=== PATIENT | male | born 1995 | race Caucasian/White ===

== ENCOUNTER 2022-09-09 13:28 | Emergency (ER) | payer OTHER ==
--- NOTE | 2022-09-09 13:49 | ERPHSYRPT ---
- History of Present Illness Time Seen by Provider: 09/09/22 13:44 Source: patient, family Exam Limitations: no limitations Physician History: Pt thinks he got bitten by a spider last week on back of his neck and went to [facility] [place] a few days ago where they lanced it but it sealed back up and it is getting bigger. underlying spine not tender. mid eschar with indurated skin around and area that appears pointing but induration is thick - pt advised that it still may not drain and may require surgical drainage definitively. He an understand risks and benefits and wish to try drainage again. No other symptoms. PMHx is positive for prior MRSA No Neuro symptoms. Timing/Duration: day(s) Quality: painful Severity: moderate Location: neck Possible Causes: insect bite Associated Symptoms: denies symptoms Allergies/Adverse Reactions: No Known Drug Allergies Allergy (Verified 09/09/22 13:53) Home Medications: No Reportable Medications [No Reported Medications] 09/09/22 [History] Hx Tetanus, Diphtheria Vaccination/Date Given: No (last had update 2 years ago) - Review of Systems Constitutional: No Fever, No Chills Eyes: No Symptoms Ears, Nose, & Throat: No Symptoms Respiratory: No Cough, No Dyspnea Cardiac: No Chest Pain, No Edema, No Syncope Abdominal/Gastrointestinal: No Abdominal Pain, No Nausea, No Vomiting, No Diarrhea Genitourinary Symptoms: No Dysuria Musculoskeletal: No Back Pain, No Neck Pain Skin: No Rash Neurological: No Dizziness, No Focal Weakness, No Sensory Changes Psychological: No Symptoms Endocrine: No Symptoms Hematologic/Lymphatic: No Symptoms Immunological/Allergic: No Symptoms All Other Systems: Reviewed and Negative - Past Medical History Pertinent Past Medical History: Yes Neurological History: No Pertinent History ENT History: No Pertinent History Cardiac History: No Pertinent History Respiratory History: No Pertinent History Endocrine Medical History: No Pertinent History Musculoskeletal History: No Pertinent History GI Medical History: No Pertinent History History: No Pertinent History Psycho-Social History: No Pertinent History Male Reproductive Disorders: No Pertinent History Other Medical History: Prior MRSA - Past Surgical History Past Surgical History: No Neuro Surgical History: No Pertinent History Cardiac: No Pertinent History Respiratory: No Pertinent History Gastrointestinal: No Pertinent History Genitourinary: No Pertinent History Musculoskeletal: No Pertinent History Male Surgical History: No Pertinent History Significant Family History: no pertinent family hx - Nursing Vital Signs Nursing Vital Signs: Initial Vital Signs Temperature 97.1 F 05/27/23 13:37 Pulse Rate 98 H 09/09/22 13:37 Blood Pressure 138/80 09/09/22 13:37 O2 Sat by Pulse Oximetry 99 09/09/22 13:37 Pain Scale Pain Intensity 4 - Physical Exam General Appearance: no apparent distress, alert Eye Exam: PERRL/EOMI, eyes nml inspection Ears, Nose, Throat Exam: normal ENT inspection, pharynx normal, moist mucous membranes Neck Exam: normal inspection, non-tender, supple, full range of motion, mass (abscess/cellulitis posterior neck appears mobile separately from spine), No meningismus Respiratory Exam: normal breath sounds, lungs clear, airway intact, No respirato ry distress Cardiovascular Exam: regular rate/rhythm, normal heart sounds Gastrointestinal/Abdomen Exam: soft, mass, No tenderness Rectal Exam: deferred Back Exam: normal inspection, normal range of motion, No CVA tenderness, No vertebral tenderness Extremity Exam: normal inspection, normal range of motion Neurologic Exam: alert, oriented x 3, cooperative, normal mood/affect, sensation nml, No motor deficits Skin Exam: normal color, warm, dry, other (abscess/cellulitis left posterior neck) SpO2 Interpretation: normal SpO2: 98 O2 Delivery: Room Air Procedures - Incision and Drainage Time of Procedure: 14:59 Site: posterior neck Anesthesia: 1% Lidocaine cc's of anesthesia: 3 Blade Size: 11 I & D Procedure: betadine prep, sterile drapes applied, sterile dressing applied, culture obtained, gauze wick placed Results: large amount pus - Course Nursing assessment & vital signs reviewed: Yes - Progress Progress: improved, re-examined Progress Note: 09/09/22 15:01 discussed risks/benefits with pt and spouse fopr drainage adn antibiotic Tx infusion clinic due to likely recurren t MRSA and they agree to proceed. They understand also risks for need of more definitive surgical drainage. Counseled pt/family regarding: lab results, diagnosis, need for follow-up Medical Desision Making - Independent Historian Additional History obtained from: Spouse - Discussion of managment Reviewed:: Need for additional workup - Diagnostic Testing Diagnostic test were ordered, analyzed, and reviewed by me: Yes - Risk of complications The pt has a mod risk of morbidity or mortality based on: Need for prescription drug management - Departure Departure Disposition: Home Clinical Impression: MRSA cellulitis and abscess Condition: Good Critical Care Time: No Instructions: MRSA (DC), Abscess Incision and Drainage (DC) Additional Instructions: Return to the hospital outpatient infusion clinic for antibiotics tomorrow morning ( twice a day will be required for the next several days depending on follow-up with Dr. Solorio but we have written for up to 10 days) THe packing will need to by changed periodically either there or with Dr. Lora or ER if needed and dressing changed each time at the clinic. Return meantime if any fever, vomiting or not improving or other concerns.
[2022-09-09] MEDS ORDERED: VANCOMYCIN 1 GRAM/200 ML BAG 1 GM/200 ML PIGGYBACK IV ONE ×2 (15:08→15:16)
[2022-09-09] MEDS ORDERED: NORCO 5/325 MG PO ONE ×2 (15:21→15:23)
[2022-09-09] MEDS ORDERED: NORCO 5/325 MG ONE ×2 (15:25→17:01)
[2022-09-09 16:29] LABS: BLOOD UREA NITROGEN 17 mg/dL (9-20); Creatinine 1 0.94 mg/dL (0.66-1.25); EST GLOMERULAR FILTRATION RATE > 60.0 ML/MIN
[2022-09-09 17:10] VITALS: BP 119/69; PULSE 78; O2SAT 97
== END 2022-09-09 17:10 | disposition home or self-care (01) ==
LOC: ED 13:28
DX: L03.221 Cellulitis of neck (principal); B95.62 Methicillin resistant Staphylococcus aureus infection as the cause of diseases classified elsewhere; L02.11 Cutaneous abscess of neck
CPT/HCPCS: 10060; 36000; 36415; 82565; 84520; 87070; 87077; 87186; 96365; 99284; A9270-GY; J3370

== ENCOUNTER 2023-04-22 12:48 | Observation (INO) | payer BC, OTHER ==
[2023-04-22] MEDS ORDERED: Sodium Chloride 0.9% 1000 ML 1,000 ML IV STA (13:43)
--- NOTE | 2023-04-22 13:49 | ERPHSYRPT ---
- History of Present Illness Time Seen by Provider: 04/22/23 13:10 Historian: patient Exam Limitations: no limitations Patient Subjective Stated Complaint: pt here for abd cramping to lower abd, loose stools, fever Triage Nursing Assessment: pt alert, walked in, resp easy, skin w/d/p. abd soft, no edema, moves all ext well Physician History: 27yo m no pmhx presents for 2d n/v/d/epigastric pain. Pt reports the n/v started on 04/20 in the evening, pt does not recall what he ate that day but reports having multiple episodes of NBNB emesis as well as non-bloody diarrhea. Pt states yesterday his sx began to improve but he was still unable to tolerate PO intake, has not had anything PO today, has not vomited today. Pt currently denies cp, soa, BARAHONA, does endorse some epigastric abdominal pain, denies nausea. Timing/Duration: day(s) (2) Activities at Onset: none Quality: cramping Abdominal Pain Onset Location: epigastric Pain Radiation: no radiation Severity of Pain-Max: moderate Severity of Pain-Current: none Modifying Factors: Improves With: nothing Associated Symptoms: diarrhea, loss of appetite, nausea Previous symptoms: no prior history Body Map: 1 - epigastric pain Allergies/Adverse Reactions: No Known Drug Allergies Allergy (Verified 04/22/23 13:00) Home Medications: No Reportable Medications [No Reported Medications] 04/22/23 [History] Hx Tetanus, Diphtheria Vaccination/Date Given: No Hx Influenza Vaccination/Date Given: No Hx Pneumococcal Vaccination/Date Given: No Immunizations Up to Date: Yes Travel Risk - International Travel Have you traveled outside of the country in past 3 weeks: No - Coronavirus Screening Are you exhibiting any of the following symptoms?: Yes Symptoms: Fever, Vomiting/Diarrhea - Vaccine Status Have you recieved a Covid-19 vaccination: No - Review of Systems Constitutional: No Symptoms Respiratory: No Symptoms Cardiac: No Symptoms Abdominal/Gastrointestinal: Abdominal Pain, Nausea, Vomiting, Diarrhea Genitourinary Symptoms: No Symptoms - Past Medical History Pertinent Past Medical History: Yes Neurological History: Other ENT History: No Pertinent History Cardiac History: No Pertinent History Respiratory History: Asthma Endocrine Medical History: No Pertinent History Musculoskeletal History: No Pertinent History GI Medical History: No Pertinent History History: No Pertinent History Psycho-Social History: No Pertinent History Male Reproductive Disorders: No Pertinent History Other Medical History: PT. HAS ADHD AND ADD - Past Surgical History Past Surgical History: No Neuro Surgical History: No Pertinent History Cardiac: No Pertinent History Respiratory: No Pertinent History Gastrointestinal: No Pertinent History Genitourinary: No Pertinent History Musculoskeletal: No Pertinent History Male Surgical History: No Pertinent History - Social History Smoking Status: Current every day smoker How long have you smoked: age 15 Exposure to second hand smoke: Yes Drug Use: marijuana Patient Lives Alone: Yes Significant Family History: no pertinent family hx - Nursing Vital Signs Nursing Vital Signs: Initial Vital Signs Temperature 98.1 F 04/22/23 13:05 Pulse Rate 77 04/22/23 13:05 Respiratory Rate 16 04/22/23 13:05 Blood Pressure 118/76 04/22/23 13:05 O2 Sat by Pulse Oximetry 99 04/22/23 13:05 Pain Scale Pain Intensity 4 - Physical Exam General Appearance: no apparent distress Respiratory Exam: normal breath sounds, airway intact Cardiovascular Exam: regular rate/rhythm, normal heart sounds, normal peripheral pulses Gastrointestinal/Abdomen Exam: soft, normal bowel sounds, tenderness (mild TTP over epigastric region; no distention, no rebound tenderness, negative m cburney's, negative rovsing) SpO2 Interpretation: normal SpO2: 99 O2 Delivery: Room Air Ordered Tests: Active Orders 24 hr Category Date Time Status IV Insertion STAT Care 04/22/23 13:25 Active ABDOMEN AND PELVIS W CONTRAST [CT] Stat Exams 04/22/23 14:15 Completed CBC W DIFF Stat Lab 04/22/23 13:00 Completed CMP Stat Lab 04/22/23 13:00 Completed LIPASE Stat Lab 04/22/23 13:00 Completed Transfer Order Routine Transfer 04/22/23 Ordered Medication Summary Discontinued Medications Generic Name Dose Route Start Last Admin Trade Name Freq PRN Reason Stop Dose Admin Sodium Chloride 1,000 mls @ 999 mls/hr 04/22/23 13:43 04/22/23 14:56 Sodium Chloride 0.9% 1000 Ml IV 04/22/23 14:43 Infused .Q1H1M STA Infusion Sodium Chloride Confirm 04/22/23 13:53 Sodium Chloride 0.9% 1000 Ml Administered 04/22/23 13:54 Dose 1,000 mls @ ud .ROUTE .STK-MED ONE Potassium Chloride 20 meq 04/22/23 14:10 04/22/23 14:26 Potassium Chloride Tab 10 Meq Tab PO 04/22/23 14:11 20 meq STAT ONE Administration Potassium Chloride Confirm 04/22/23 14:23 Potassium Chloride Tab 10 Meq Tab Administered 04/22/23 14:24 Dose 20 meq PO .STK-MED ONE Lab/Rad Data: Laboratory Result Diagrams 04/22/23 13:00 04/22/23 13:00 Laboratory Results 04/22/23 04/22/23 Range/Units 13:00 13:00 WBC 6.7 (4.0-10.5) x10^3/uL RBC 4.96 (4.1-5.6) x10^6/uL Hgb 15.0 (12.5-18.0) g/dL Hct 44.7 (42-50) % MCV 90.1 (78-100) fL MCH 30.2 (26-32) pg MCHC 33.6 (32-36) g/dL RDW 12.8 (11.5-14.0) % Plt Count 289 (150-450) x10^3/uL MPV 9.8 (7.5-11.0) fL Gran % 67.3 H (36.0-66.0) % Immature Gran % (Auto) 0.3 (0.00-0.4) % Nucleat RBC Rel Count 0.0 (0.00-0.1) % Eos # (Auto) 0.28 (0-0.5) x10^3/uL Immature Gran # (Auto) 0.02 (0.00-0.03) x10^3u/L Absolute Lymphs (auto) 1.30 (1.0-4.6) x10^3/uL Absolute Monos (auto) 0.56 (0.0-1.3) x10^3/uL Absolute Nucleated RBC 0.00 (0.00-0.01) x10^3u/L Lymphocytes % 19.5 L (24.0-44.0) % Monocytes % 8.4 (0.0-12.0) % Eosinophils % 4.2 (0.00-5.0) % Basophils % 0.3 (0.0-0.4) % Absolute Granulocytes 4.50 (1.4-6.9) x10^3/uL Basophils # 0.02 (0-0.4) x10^3/uL Sodium 134 L (137-145) mmol/L Potassium 3.3 L (3.5-5.1) mmol/L Chloride 103 (98-107) mmol/L Carbon Dioxide 23 (22-30) mmol/L Anion Gap 11.5 (5-15) MEQ/L BUN 16 (9-20) mg/dL Creatinine 0.85 (0.66-1.25) mg/dL Estimated GFR 120.6 ML/MIN Glucose 92 (74-106) mg/dL Calcium 8.5 (8.4-10.2) mg/dL Total Bilirubin 0.40 (0.2-1.3) mg/dL AST 24 (17-59) U/L ALT 22 (0-50) U/L Alkaline Phosphatase 82 (38-126) U/L Serum Total Protein 6.9 (6.3-8.2) g/dL Albumin 4.0 (3.5-5.0) g/dL Lipase 34 (23-300) U/L - Progress Progress: unchanged Progress Note: 04/22/23 13:49 CT abd/pel w/ contrast ordered for eval of abdominal discomfort pt not requesting pain medication or anti-emetics at current time 04/22/23 14:11 labs showing mild hypoNa, hypoK - given IV NS bolus, 20meq K PO 04/22/23 16:32 CT abd/pelv: 1. The appendix appears slightly thick-walled with [id number] thickness measuring 1.0 cm and mild carolyn appendiceal fat stranding seen, findings are likely suggestive of acute appendicitis, clinical and laboratory correlation is advised. 2. A small amount of free fluid is seen in the pelvis. 3. Dilated small bowel loops with no evidence of bowel obstruction. I discussed pt presentation w/ gen surg Dr Albino Gonzales who recommended admission and plan for appendectomy tomorrow instructed to make pt NPO at midnight w/ clear liquids up to that time I informed pt about results and plan for admission, pt is agreeable 04/22/23 16:54 Discussed admission w/ Dr Kiran, accepts admission Will see patient in: hospital (observation) Counseled pt/family regarding: lab results, diagnosis, need for follow-up, rad results Medical Desision Making - Discussion of managment Care discussed with:: specialist (general surgery - Albino Gonzales) Reviewed:: Test results, Need for additional workup Agreed on:: place in obs (plan for appy tomorrow) Will see patient: in hospital - Diagnostic Testing Diagnostic test were ordered, analyzed, and reviewed by me: Yes Radiological Interpretation: Reviewed by me, Teleradiologist Report - Risk of complications The pt has a mod risk of morbidity or mortality based on: Need for minor surgical intervention in patient with know risk factors - Departure Departure Disposition: Observation Clinical Impression: Acute appendicitis Qualifiers: Acute appendicitis type: other Qualified Code(s): K35.890 - Other acute appendicitis without perforation or gangrene Condition: Stable Critical Care Time: No Referrals: DOCTOR,NO FAMILY [Primary Care Provider] - Follow up/PCP as directed
[2023-04-22] MEDS ORDERED: Sodium Chloride 0.9% 1000 ML 1,000 ML ONE (13:53)
[2023-04-22 13:54] LABS: ANION GAP 11.5 MEQ/L (5-15); BILIRUBIN,TOTAL 0.4 mg/dL (0.2-1.3); Calcium 8.5 mg/dL (8.4-10.2); Creatinine 1 0.85 mg/dL (0.66-1.25); EST GLOMERULAR FILTRATION RATE 120.6 ML/MIN; Potassium 3.3 mmol/L (3.5-5.1); Total Protein 6.9 g/dL (6.3-8.2)
[2023-04-22 14:04] LABS: BASOPHIL % 0.3 % (0.0-0.4); Basophil (Absolute #) 0.02 x10^3/uL (0-0.4); Eosinophil % 4.2 % (0.00-5.0); Eosinophil (Absolute #) 0.28 x10^3/uL (0-0.5); Hematocrit 44.7 % (42-50); IMMATURE GRAN # 0.02 x10^3u/L (0.00-0.03); IMMATURE GRAN % 0.3 % (0.00-0.4); Lymphocytes % 19.5 % (24.0-44.0); Mean Cell Volume 90.1 fL (78-100); Mean Corpuscular Hemoglobin 30.2 pg (26-32); Mean Corpuscular Hgb Concent. 33.6 g/dL (32-36); Mean Platelet Volume 9.8 fL (7.5-11.0); Monocyte (Absolute #) 0.56 x10^3/uL (0.0-1.3); Monocytes % 8.4 % (0.0-12.0); Neutrophil % 67.3 % (36.0-66.0); Platelet Count 289 x10^3/uL (150-450); Red Blood Count 4.96 x10^6/uL (4.1-5.6); Red Cell Distribution Width 12.8 % (11.5-14.0); White Blood Count 6.7 x10^3/uL (4.0-10.5)
[2023-04-22] MEDS ORDERED: Klor Con PO ONE ×2 (14:10→14:23)
--- NOTE | 2023-04-22 16:11 | XRAY ---
CLINICAL HISTORY:abdominal pain COMPARISON:None available. TECHNIQUE:CT of the abdomen and pelvis was performed with axial images as well as sagittal and coronal reconstruction images with intravenous contrast (80 CC ISOVUE [id number]). Images were reviewed in soft tissue and bone window settings. FINDINGS: The liver is normal in size, morphology, and position. The liver appears unremarkable with no extrahepatic bile duct dilation. The Portal vein appears normal in caliber. No evidence of portal thrombosis. The gallbladder appears partially distended with no obvious stones, wall thickening or pericholecystic inflammatory changes, or fluid. Unremarkable appearing pancreas. No pancreatic mass or ductal dilatation is seen. Unremarkable appearing spleen. Both adrenal glands appear normal. No abdominal wall pathology is seen. The kidneys appear normal in size. No cysts, calculi, masses or hydronephrosis. The ureters are normal with no stones. The urinary bladder is not well distended. Unremarkable abdominal aorta without specific evidence of aneurysm or dissection. IVC is normal. The stomach is partially collapsed and appears grossly unremarkable. A small amount of free fluid is seen in the pelvis. Dilated small bowel loops are seen with a maximum diameter in the pelvis measuring about 4 cm. The large bowel loops are of normal caliber and air-filled. The appendix appears slightly thick-walled with [id number]-[id number] thickness measuring 1.0 cm and adjacent fat stranding (SERIES # 2 IMAGE # [id number]). Findings are likely suggestive of acute appendicitis. No evidence of free air seen. Included lung bases and the visualized osseous structures appear unremarkable. IMPRESSION: 1. The appendix appears slightly thick-walled with [id number] thickness measuring 1.0 cm and mild carolyn appendiceal fat stranding seen, findings are likely suggestive of acute appendicitis, clinical and laboratory correlation is advised. 2. A small amount of free fluid is seen in the pelvis. 3. Dilated small bowel loops with no evidence of bowel obstruction. The [facility] ER was called at at 03:02 PM [employer] on 04/22/2023 and the results were communicated to Silvano Mora. Electronically Signed by: Rei Winn MD. (04/22/2023 16:07:57 EST)
--- NOTE | 2023-04-22 17:50 | PCM.HP ---
History of Present Illness - Chief Complaint Chief Complaint: Acute Appendicitis Date: 04/22/23 History of Present Illness: is a 27 year old male with PMHX of asthma, daily smoker, and smokes marijuana, ADD, and ADHD. Pt presented to the ER for 2days n/v/ d/epigastric pain. Pt reports the n/v started on 15 in the evening, pt does not recall what he ate that day but reports having multiple episodes of NBNB emesis as well as non-bloody diarrhea. Pt states yesterday his sx began to improve but he was still unable to tolerate PO intake, has not had anything PO today, has not vomited today. Pt currently denies CP, SOB, BARAHONA, does endorse some epigastric abdominal pain, denies nausea. WBC is normal, K+ 3.3 and replaced in ER. He received 1 L NS in the ER. - Review of Systems Constitutional: No Fever, No Chills Eyes: No Symptoms Ears, Nose, & Throat: No Symptoms Respiratory: No Cough, No Short Of Breath Cardiac: No Chest Pain, No Edema, No Syncope Abdominal/Gastrointestinal: Abdominal Pain, Nausea, Vomiting, Diarrhea Genitourinary Symptoms: No Dysuria Musculoskeletal: No Back Pain, No Neck Pain Skin: No Rash Neurological: No Dizziness, No Focal Weakness, No Sensory Changes Psychological: No Symptoms Endocrine: No Symptoms Hematologic/Lymphatic: No Symptoms Immunological/Allergic: No Symptoms Medications & Allergies Home Medications: Home Medication List No Reportable Medications [No Reported Medications] 04/22/23 [History Confirmed 04/22/23] Allergies/Adverse Reactions: Allergies Allergy/AdvReac Type Severity Reaction Status Date / Time No Known Drug Allergies Allergy Verified 04/22/23 13:00 - Past Medical History Past Medical History: Yes Neurological History: No Pertinent History ENT History: No Pertinent History Cardiac History: No Pertinent History Respiratory History: Asthma Endocrine Medical History: No Pertinent History Musculoskelatal History: No Pertinent History GI Medical History: No Pertinent History History: No Pertinent History Pyscho-Social History: Attention Deficit Disorder Male Reproductive Disorders: No Pertinent History Comment: PT. HAS ADHD AND ADD - Past Surgical History Past Surgical History: No Neuro Surgical History: No Pertinent History Cardiac History: No Pertinent History Respiratory Surgery: No Pertinent History GI Surgical History: No Pertinent History Genitourinary Surgical Hx: No Pertinent History Musculskeletal Surgical Hx: No Pertinent History Male Surgical History: No Pertinent History - Social History Smoking Status: Current every day smoker How long have you smoked: 10+ Exposure to second hand smoke: No Alcohol: Rarely Drug Use: none Significant Family History: no pertinent family hx - Physical Exam Vital Signs: Vital Signs - 24 hr Temp Pulse Resp BP BP Pulse Ox 04/22/23 17:23 97.9 F 71 16 116/75 99 04/22/23 17:13 97.9 F 71 16 116/75 99 04/22/23 16:54 99 04/22/23 16:00 70 16 101/64 04/22/23 15:30 110/76 99 04/22/23 15:01 114/59 99 04/22/23 14:30 118/79 93 L 04/22/23 14:00 115/75 98 04/22/23 13:05 98.1 F 77 16 118/76 99 General Appearance: no apparent distress, alert Neurologic Exam: alert, oriented x 3, cooperative, normal mood/affect, nml cerebellar function, nml station & gait, sensation nml, No motor deficits Eye Exam: PERRL/EOMI, eyes nml inspection Ears, Nose, Throat Exam: normal ENT inspection, TMs normal, pharynx normal, moist mucous membranes Neck Exam: normal inspection, non-tender, supple, full range of motion Respiratory Exam: normal breath sounds, lungs clear, No respiratory distress Cardiovascular Exam: regular rate/rhythm, normal heart sounds, normal peripheral pulses Gastrointestinal/Abdomen Exam: soft, normal bowel sounds, tenderness (RUQ and epigastric regions), No mass Back Exam: normal inspection, normal range of motion, No CVA tenderness, No vertebral tenderness Extremity Exam: normal inspection, normal range of motion, pelvis stable Skin Exam: normal color, warm, dry, No rash Lymphatic Exam: No adenopathy Results - Labs Lab/Micro Results: Lab Results-Last 24 Hours 04/22/23 04/22/23 Range/Units 13:00 13:00 WBC 6.7 (4.0-10.5) x10^3/uL RBC 4.96 (4.1-5.6) x10^6/uL Hgb 15.0 (12.5-18.0) g/dL Hct 44.7 (42-50) % MCV 90.1 (78-100) fL MCH 30.2 (26-32) pg MCHC 33.6 (32-36) g/dL RDW 12.8 (11.5-14.0) % Plt Count 289 (150-450) x10^3/uL MPV 9.8 (7.5-11.0) fL Gran % 67.3 H (36.0-66.0) % Immature Gran % (Auto) 0.3 (0.00-0.4) % Nucleat RBC Rel Count 0.0 (0.00-0.1) % Eos # (Auto) 0.28 (0-0.5) x10^3/uL Immature Gran # (Auto) 0.02 (0.00-0.03) x10^3u/L Absolute Lymphs (auto) 1.30 (1.0-4.6) x10^3/uL Absolute Monos (auto) 0.56 (0.0-1.3) x10^3/uL Absolute Nucleated RBC 0.00 (0.00-0.01) x10^3u/L Lymphocytes % 19.5 L (24.0-44.0) % Monocytes % 8.4 (0.0-12.0) % Eosinophils % 4.2 (0.00-5.0) % Basophils % 0.3 (0.0-0.4) % Absolute Granulocytes 4.50 (1.4-6.9) x10^3/uL Basophils # 0.02 (0-0.4) x10^3/uL Sodium 134 L (137-145) mmol/L Potassium 3.3 L (3.5-5.1) mmol/L Chloride 103 (98-107) mmol/L Carbon Dioxide 23 (22-30) mmol/L Anion Gap 11.5 (5-15) MEQ/L BUN 16 (9-20) mg/dL Creatinine 0.85 (0.66-1.25) mg/dL Estimated GFR 120.6 ML/MIN Glucose 92 (74-106) mg/dL Calcium 8.5 (8.4-10.2) mg/dL Total Bilirubin 0.40 (0.2-1.3) mg/dL AST 24 (17-59) U/L ALT 22 (0-50) U/L Alkaline Phosphatase 82 (38-126) U/L Serum Total Protein 6.9 (6.3-8.2) g/dL Albumin 4.0 (3.5-5.0) g/dL Lipase 34 (23-300) U/L - Radiology Impressions Radiology Exams & Impressions: Radiology Procedures Category Date Time Status ABDOMEN AND PELVIS W CONTRAST [CT] Stat Exams 04/22/23 14:15 Completed Assessment/Plan (1) Acute appendicitis Current Visit: Yes Status: Acute Qualifiers: Acute appendicitis type: other Qualified Code(s): K35.890 - Other acute appendicitis without perforation or gangrene; K35.89 - Other acute appendicitis Assessment & Plan: -NPO after midnight - WBC WNL - LR @ 100 ml/hr - Zofran for nausea PRN - Morphine for pain PRN - Tylenol for fever PRN Code(s): K35.80 - UNSPECIFIED ACUTE APPENDICITIS (2) Hypokalemia Current Visit: Yes Status: Acute Assessment & Plan: - K+ 3.3 replaced Code(s): E87.6 - HYPOKALEMIA (3) Hyponatremia Current Visit: Yes Status: Acute Assessment & Plan: - Mild Na+ 134 - 2:2 N/V- hypovolemia - IVF - Zofran PRN Code(s): E87.1 - HYPO-OSMOLALITY AND HYPONATREMIA (4) Smoker Current Visit: Yes Status: Acute Assessment & Plan: - advised cessation - nicotine patch VTE: SCD D/C plan tomorrow. Code(s): F17.200 - NICOTINE DEPENDENCE, UNSPECIFIED, UNCOMPLICATED
[2023-04-22] MEDS ORDERED: Zofran 4 MG/2 ML VIAL IV PRN (17:52)
[2023-04-22] MEDS ORDERED: TYLENOL 325 MG PO PRN (17:58)
[2023-04-22] MEDS: Lactated Ringers 1,000 ML IV SCH (18:09)
[2023-04-22] MEDS: Nicoderm CQ 21 MG TOP SCH (18:13)
[2023-04-22] MEDS: MORPHINE SULFATE 2 MG INJ IV PRN (18:18)
[2023-04-22] MEDS ORDERED: PIPERACILLIN/TAZOBACTAM IV ONE (23:30)
[2023-04-22] MEDS ORDERED: Sodium Chloride 100ML MINI-BAG PLUS 100 ML IV ONE (23:30)
[2023-04-23] MEDS: PIPERACILLIN/TAZOBACTAM 3.375 GM in Sodium Chloride 100ML MINI-BAG PLUS 100 ML IV SCH ×5 (00:03→22:21)
[2023-04-23] MEDS: MORPHINE SULFATE 2 MG INJ IV PRN (02:27)
[2023-04-23 04:54] LABS: Hematocrit 39.1 % (42-50); Mean Cell Volume 90.5 fL (78-100); Mean Corpuscular Hemoglobin 30.1 pg (26-32); Mean Corpuscular Hgb Concent. 33.2 g/dL (32-36); Mean Platelet Volume 9.6 fL (7.5-11.0); Platelet Count 256 x10^3/uL (150-450); Red Blood Count 4.32 x10^6/uL (4.1-5.6); Red Cell Distribution Width 13.2 % (11.5-14.0); White Blood Count 9.4 x10^3/uL (4.0-10.5)
--- NOTE | 2023-04-23 05:12 | PCM.NOTE ---
Date and Time: 04/23/23 0509 Subjective Assessment: Mr. Oshea is a 27 year old male with no pmhx who presented to ED 04/22/23 with complaints of N/V/D that started on 04/20/23. CT of the abdomen/pelvis suggestive of acute appendicitis with a small amount of free fluid within the abdomen. Lab findings on presentation remarkable for hypokalemia at 3.3. Patient admitted for acute appendicitis, started on Zosyn. Surgery consulted with plans for surgical intervention 04/23/23. 04/23/23: Met with patient bedside. Endorses improvement in abdominal pain. No further N/V. Overnight events noted of asymptomatic hypotension. Patient given fluid bolus, vitals now stable. Plan for surgical intervention this evening. <DIANA CORONA - Last Filed: 04/23/23 14:14> Date and Time: 04/23/23 2131 <MARK MCDANIEL - Last Filed: 04/23/23 21:32> - Review of Systems Constitutional: No Symptoms Eyes: No Symptoms Ears, Nose, & Throat: No Symptoms Respiratory: No Symptoms Cardiac: No Symptoms Abdominal/Gastrointestinal: No Symptoms Genitourinary Symptoms: No Symptoms Musculoskeletal: No Symptoms Skin: No Symptoms Neurological: No Symptoms Psychological: No Symptoms Endocrine: No Symptoms Hematologic/Lymphatic: No Symptoms Immunological/Allergic: No Symptoms <DIANA CORONA - Last Filed: 04/23/23 14:14> Objective Exam General Appearance: no apparent distress Neurologic Exam: alert, oriented x 3, cooperative Skin Exam: normal color Eye Exam: PERRL Ears, Nose, Throat Exam: normal ENT inspection Neck Exam: normal inspection Respiratory Exam: normal breath sounds, lungs clear Cardiovascular Exam: regular rate/rhythm, normal heart sounds Gastrointestinal/Abdomen Exam: soft, normal bowel sounds, tenderness Extremity Exam: normal inspection Back Exam: normal inspection Male Genitalia Exam: deferred Rectal Exam: deferred <DIANA CORONA - Last Filed: 04/23/23 14:14> OBJECTIVE DATA Vital Signs: Vital Signs - 24 hr Temp Pulse Resp BP BP Pulse Ox 04/23/23 03:47 97.8 F 75 16 84/51 97 04/22/23 23:55 98.5 F 77 17 121/69 99 04/22/23 20:00 98.3 F 65 17 114/68 98 04/22/23 17:23 97.9 F 71 16 116/75 99 04/22/23 17:13 97.9 F 71 16 116/75 99 04/22/23 16:54 99 04/22/23 16:00 70 16 101/64 04/22/23 15:30 110/76 99 04/22/23 15:01 114/59 99 04/22/23 14:30 118/79 93 L 04/22/23 14:00 115/75 98 04/22/23 13:05 98.1 F 77 16 118/76 99 Pain Assessment - Last Documented Pain Intensity 2 Pain Scale Used 0-10 Pain Scale Intake and Output: Intake & Output 04/20/23 04/21/23 04/22/23 04/23/23 11:59 11:59 11:59 11:59 Intake Total 1551 Balance 1551 Weight 81.5 kg Lab Results: Lab Results-Last 24 Hours 04/22/23 04/22/23 04/23/23 Range/Units 13:00 13:00 04:37 WBC 6.7 9.4 (4.0-10.5) x10^3/uL RBC 4.96 4.32 (4.1-5.6) x10^6/uL Hgb 15.0 13.0 (12.5-18.0) g/dL Hct 44.7 39.1 L (42-50) % MCV 90.1 90.5 (78-100) fL MCH 30.2 30.1 (26-32) pg MCHC 33.6 33.2 (32-36) g/dL RDW 12.8 13.2 (11.5-14.0) % Plt Count 289 256 (150-450) x10^3/uL MPV 9.8 9.6 (7.5-11.0) fL Gran % 67.3 H (36.0-66.0) % Immature Gran % (Auto) 0.3 (0.00-0.4) % Nucleat RBC Rel Count 0.0 (0.00-0.1) % Eos # (Auto) 0.28 (0-0.5) x10^3/uL Immature Gran # (Auto) 0.02 (0.00-0.03) x10^3u/L Absolute Lymphs (auto) 1.30 (1.0-4.6) x10^3/uL Absolute Monos (auto) 0.56 (0.0-1.3) x10^3/uL Absolute Nucleated RBC 0.00 (0.00-0.01) x10^3u/L Lymphocytes % 19.5 L (24.0-44.0) % Monocytes % 8.4 (0.0-12.0) % Eosinophils % 4.2 (0.00-5.0) % Basophils % 0.3 (0.0-0.4) % Absolute Granulocytes 4.50 (1.4-6.9) x10^3/uL Basophils # 0.02 (0-0.4) x10^3/uL Sodium 134 L (137-145) mmol/L Potassium 3.3 L (3.5-5.1) mmol/L Chloride 103 (98-107) mmol/L Carbon Dioxide 23 (22-30) mmol/L Anion Gap 11.5 (5-15) MEQ/L BUN 16 (9-20) mg/dL Creatinine 0.85 (0.66-1.25) mg/dL Estimated GFR 120.6 ML/MIN Glucose 92 (74-106) mg/dL Calcium 8.5 (8.4-10.2) mg/dL Total Bilirubin 0.40 (0.2-1.3) mg/dL AST 24 (17-59) U/L ALT 22 (0-50) U/L Alkaline Phosphatase 82 (38-126) U/L Serum Total Protein 6.9 (6.3-8.2) g/dL Albumin 4.0 (3.5-5.0) g/dL Lipase 34 (23-300) U/L Radiology Exams: Radiology Procedures Category Date Time Status ABDOMEN AND PELVIS W CONTRAST [CT] Stat Exams 04/22/23 14:15 Completed <DIANA CORONA - Last Filed: 04/23/23 14:14> Vital Signs: Vital Signs - 24 hr Temp Pulse Resp BP Pulse Ox 04/23/23 17:06 97.0 F 65 17 107/58 99 04/23/23 16:00 97.0 F 65 17 107/58 99 04/23/23 12:00 97.3 F 69 17 111/59 97 04/23/23 08:29 100/64 04/23/23 08:00 97.3 F 69 17 111/59 97 04/23/23 07:53 97.0 F 55 L 16 78/48 99 04/23/23 07:28 97.0 F 55 L 16 78/48 99 04/23/23 03:47 97.8 F 75 16 84/51 97 04/22/23 23:55 98.5 F 77 17 121/69 99 Pain Assessment - Last Documented Pain Intensity 0 Pain Scale Used 0-10 Pain Scale Intake and Output: Intake & Output 04/21/23 04/22/23 04/23/23 04/24/23 11:59 11:59 11:59 11:59 Intake Total 2682 60 Balance 2682 60 Weight 81.5 kg 81.5 kg Lab Results: Lab Results-Last 24 Hours 04/23/23 04/23/23 Range/Units 04:37 04:37 WBC 9.4 (4.0-10.5) x10^3/uL RBC 4.32 (4.1-5.6) x10^6/uL Hgb 13.0 (12.5-18.0) g/dL Hct 39.1 L (42-50) % MCV 90.5 (78-100) fL MCH 30.1 (26-32) pg MCHC 33.2 (32-36) g/dL RDW 13.2 (11.5-14.0) % Plt Count 256 (150-450) x10^3/uL MPV 9.6 (7.5-11.0) fL Sodium 133 L (137-145) mmol/L Potassium 3.7 (3.5-5.1) mmol/L Chloride 106 (98-107) mmol/L Carbon Dioxide 20 L (22-30) mmol/L Anion Gap 10.1 (5-15) MEQ/L BUN 12 (9-20) mg/dL Creatinine 0.67 (0.66-1.25) mg/dL Estimated GFR 129.6 ML/MIN Glucose 110 H (74-106) mg/dL Calcium 8.1 L (8.4-10.2) mg/dL Total Bilirubin 0.30 (0.2-1.3) mg/dL AST 18 (17-59) U/L ALT 18 (0-50) U/L Alkaline Phosphatase 67 (38-126) U/L Serum Total Protein 5.9 L (6.3-8.2) g/dL Albumin 3.2 L (3.5-5.0) g/dL Radiology Exams: Radiology Procedures Category Date Time Status ABDOMEN AND PELVIS W CONTRAST [CT] Stat Exams 04/22/23 14:15 Completed <MARK MCDANIEL - Last Filed: 04/23/23 21:32> Assessment/Plan (1) Acute appendicitis Current Visit: Yes Status: Acute Qualifiers: Acute appendicitis type: other Qualified Code(s): K35.890 - Other acute appendicitis without perforation or gangrene; K35.89 - Other acute appendicitis Assessment & Plan: -NPO after midnight - WBC WNL - LR @ 100 ml/hr - Zofran for nausea PRN - Morphine for pain PRN - Tylenol for fever PRN 04/23/23: -Zosyn -Plan for surgical intervention today per surgery Code(s): K35.80 - UNSPECIFIED ACUTE APPENDICITIS (2) Hypokalemia Current Visit: Yes Status: Acute Assessment & Plan: - K+ 3.3 replaced 04/23/23: -Resolved, continue to monitor renal/lytes Code(s): E87.6 - HYPOKALEMIA (3) Hyponatremia Current Visit: Yes Status: Acute Assessment & Plan: - Mild Na+ 134 - 2:2 N/V- hypovolemia - IVF - Zofran PRN Code(s): E87.1 - HYPO-OSMOLALITY AND HYPONATREMIA (4) Smoker Current Visit: Yes Status: Acute Assessment & Plan: - advised cessation - nicotine patch VTE: SCD D/C plan tomorrow. Code(s): K35.80 - UNSPECIFIED ACUTE APPENDICITIS (2) Hypokalemia Current Visit: Yes Status: Acute Code(s): E87.6 - HYPOKALEMIA (3) Hyponatremia Current Visit: Yes Status: Acute Code(s): E87.1 - HYPO-OSMOLALITY AND HYPONATREMIA (4) Smoker Current Visit: Yes Status: Acute Code(s): F17.200 - NICOTINE DEPENDENCE, UNSPECIFIED, UNCOMPLICATED <DIANA CORONA - Last Filed: 04/23/23 14:14> JOHNNY Encounter - JOHNNY Encounter Attestation JOHNNY Encounter Attestation: "KATIANA Hare andjavieriscussed pertinent aspects of their care with Diana Corona and agree with the history, physical exam (any modifications based on my personal exam will be noted below), assessment, and plan as outlined in original note. Please see immediately below for my summary of findings and additional assessment and plan along with any meaningful corrections/explanations to the Subjective/Objective portions of the JOHNNY note will be noted." My portion of the encounter took place via telemedicine. -Patient seen prior to surgery. Denied any pain. Plan for appendectomy today. <MARK MCDANIEL - Last Filed: 04/23/23 21:32>
[2023-04-23] MEDS: Lactated Ringers 1,000 ML IV SCH ×3 (05:20→22:33)
[2023-04-23 05:27] LABS: ALBUMIN 3.2 g/dL (3.5-5.0); ANION GAP 10.1 MEQ/L (5-15); BILIRUBIN,TOTAL 0.3 mg/dL (0.2-1.3); Calcium 8.1 mg/dL (8.4-10.2); Creatinine 1 0.67 mg/dL (0.66-1.25); EST GLOMERULAR FILTRATION RATE 129.6 ML/MIN; Potassium 3.7 mmol/L (3.5-5.1); Total Protein 5.9 g/dL (6.3-8.2)
[2023-04-23] MEDS ORDERED: PIPERACILLIN/TAZOBACTAM IV ONE (05:27)
[2023-04-23] MEDS ORDERED: Sodium Chloride 100ML MINI-BAG PLUS 100 ML IV ONE (05:28)
[2023-04-23] MEDS ORDERED: Sensorcaine 0.25% 10 ML ONE (14:04)
[2023-04-23] MEDS ORDERED: SUBLIMAZE 100 MCG/2 ML ONE ×2 (18:00→19:27)
[2023-04-23] MEDS ORDERED: Versed 2 MG/2 ML Injection ONE (18:00)
[2023-04-23] MEDS ORDERED: Zemuron 100 MG/10 ML ONE (18:00)
[2023-04-23] MEDS ORDERED: DIPRIVAN 200 MG/20 ML IV ONE (18:00)
[2023-04-23] MEDS ORDERED: Quelicin Fliptop 200 MG/10 ML ONE (18:00)
[2023-04-23] MEDS ORDERED: Lactated Ringers 1,000 ML IV ONE (18:30)
[2023-04-23] MEDS ORDERED: BRIDION 200MG/2ML IV ONE (19:26)
[2023-04-23] MEDS: Nicoderm CQ 21 MG TOP SCH (22:28)
[2023-04-23] MEDS: NORCO 5/325 MG PO PRN (22:29)
[2023-04-24 02:00] VITALS: RESP 16
[2023-04-24 04:49] LABS: Absolute Neutrophil Ct (ANC) 7.38 x10^3/uL (1.4-6.9); BASOPHIL % 0.3 % (0.0-0.4); Basophil (Absolute #) 0.03 x10^3/uL (0-0.4); Eosinophil % 2.1 % (0.00-5.0); Eosinophil (Absolute #) 0.21 x10^3/uL (0-0.5); Hematocrit 38.4 % (42-50); IMMATURE GRAN # 0.04 x10^3u/L (0.00-0.03); IMMATURE GRAN % 0.4 % (0.00-0.4); Lymphocyte (Absolute #) 1.75 x10^3/uL (1.0-4.6); Lymphocytes % 17.4 % (24.0-44.0); Mean Cell Volume 89.7 fL (78-100); Mean Corpuscular Hemoglobin 30.4 pg (26-32); Mean Corpuscular Hgb Concent. 33.9 g/dL (32-36); Mean Platelet Volume 9.9 fL (7.5-11.0); Monocyte (Absolute #) 0.64 x10^3/uL (0.0-1.3); Monocytes % 6.4 % (0.0-12.0); Neutrophil % 73.4 % (36.0-66.0); Platelet Count 281 x10^3/uL (150-450); Red Blood Count 4.28 x10^6/uL (4.1-5.6); Red Cell Distribution Width 13.2 % (11.5-14.0); White Blood Count 10.1 x10^3/uL (4.0-10.5)
--- NOTE | 2023-04-24 05:08 | PCM.DS ---
Discharge Summary Date of Admission: 04/22/23 17:12 Date of Discharge: 04/24/23 Admitting Physician: FRANCOIS HESTER MD Primary Care Provider: NO FAMILY DOCTOR <DIANA CORONA - Last Filed: 04/24/23 11:39> Date of Admission: 04/22/23 17:12 Admitting Physician: FRANCOIS HESTER MD Primary Care Provider: NO FAMILY DOCTOR <MARK MCDANIEL - Last Filed: 04/24/23 21:53> Allergies <DIANA CORONA - Last Filed: 04/24/23 11:39> <MARK MCDANIEL - Last Filed: 04/24/23 21:53> Allergies No Known Drug Allergies Allergy (Verified 04/22/23 13:00) Hospital Summary - Hospital Course Hospital Course: Mr. Oshea is a 27 year old male with no pmhx who presented to ED 04/22/23 with complaints of N/V/D that started on 04/20/23. CT of the abdomen/pelvis suggestive of acute appendicitis with a small amount of free fluid within the abdomen. Lab findings on presentation remarkable for hypokalemia at 3.3. Patient admitted for acute appendicitis, started on Zosyn. Surgery consulted with plans for surgical intervention 04/23/23. Patient had lap appendectomy with no complications. He reports no pain today. Surgery has cleared him for discharge with follow up. Will supply [place] for pain. Discharge Note New Diagnosis: Appendicitis New Medications: [place] Follow Up: PCP/Surgery Latest Assessment & Plan (1) Acute appendicitis Current Visit: Yes Status: Acute Qualifiers: Acute appendicitis type: other Qualified Code(s): K35.890 - Other acute appendicitis without perforation or gangrene; K35.89 - Other acute appendicitis Assessment & Plan: -NPO after midnight - WBC WNL - LR @ 100 ml/hr - Zofran for nausea PRN - Morphine for pain PRN - Tylenol for fever PRN 04/23/23: -Zosyn -Plan for surgical intervention today per surgery Code(s): K35.80 - UNSPECIFIED ACUTE APPENDICITIS (2) Hypokalemia Current Visit: Yes Status: Acute Assessment & Plan: - K+ 3.3 replaced 04/23/23: -Resolved, continue to monitor renal/lytes Code(s): E87.6 - HYPOKALEMIA (3) Hyponatremia Current Visit: Yes Status: Acute Assessment & Plan: - Mild Na+ 134 - 2:2 N/V- hypovolemia - IVF - Zofran PRN Code(s): E87.1 - HYPO-OSMOLALITY AND HYPONATREMIA (4) Smoker Current Visit: Yes Status: Acute Assessment & Plan: - advised cessation - nicotine patch I spent 35 minutes [id number] with the patient on the day of discharge performing discharge exam, discussing hospital stay and discharge instructions with patient and caregivers, preparation of discharge records, prescriptions & referral forms and addressing any questions/concerns the patient had as documented above. - Vitals & Intake/Output Vital Signs: Vital Signs Temperature 97.5 F 04/23/23 20:30 Pulse Rate 87 04/23/23 21:30 Respiratory Rate 16 04/23/23 20:45 Blood Pressure 156/87 04/23/23 22:00 O2 Sat by Pulse Oximetry 99 04/23/23 21:00 Intake & Output: Intake & Output 04/21/23 04/22/23 04/23/23 04/24/23 11:59 11:59 11:59 11:59 Intake Total 2682 60 Balance 2682 60 Weight 81.5 kg 81.5 kg - Lab Result Diagrams: 04/24/23 04:19 04/24/23 04:19 Lab Results-Last 24 Hrs: Lab Results-Last 24 Hours 04/23/23 Range/Units 04:37 Sodium 133 L (137-145) mmol/L Potassium 3.7 (3.5-5.1) mmol/L Chloride 106 (98-107) mmol/L Carbon Dioxide 20 L (22-30) mmol/L Anion Gap 10.1 (5-15) MEQ/L BUN 12 (9-20) mg/dL Creatinine 0.67 (0.66-1.25) mg/dL Estimated GFR 129.6 ML/MIN Glucose 110 H (74-106) mg/dL Calcium 8.1 L (8.4-10.2) mg/dL Total Bilirubin 0.30 (0.2-1.3) mg/dL AST 18 (17-59) U/L ALT 18 (0-50) U/L Alkaline Phosphatase 67 (38-126) U/L Serum Total Protein 5.9 L (6.3-8.2) g/dL Albumin 3.2 L (3.5-5.0) g/dL - Radiology Exams Ordered Rad Exams-Entire Visit: Radiology Procedures Category Date Time Status ABDOMEN AND PELVIS W CONTRAST [CT] Stat Exams 04/22/23 14:15 Completed - Procedures and Test Procedures and Tests throughout Hospitalization: Therapy Orders & Screens 04/23/23 21:50 Smoking Cessation Education ONCE Comment: Diagnosis: Acute Appendicitis Smoking Status: Current every day smoker How long have you smoked: 10+ Have you smoked in the past 12 months: Yes Approximately how many cigarettes per day: 6-7/day Do you dip or chew tobacco: No <DIANA CORONA - Last Filed: 04/24/23 11:39> - Vitals & Intake/Output Vital Signs: Vital Signs Temperature 98.4 F 04/24/23 07:59 Pulse Rate 86 04/24/23 07:59 Respiratory Rate 16 04/24/23 07:59 Blood Pressure 81/45 04/24/23 07:59 O2 Sat by Pulse Oximetry 93 L 04/24/23 07:59 Intake & Output: Intake & Output 04/22/23 04/23/23 04/24/23 04/25/23 11:59 11:59 11:59 11:59 Intake Total 2682 1076 Output Total 1100 Balance 2682 -24 Weight 81.5 kg 81.5 kg - Lab Result Diagrams: 04/24/23 04:19 04/24/23 04:19 Lab Results-Last 24 Hrs: Lab Results-Last 24 Hours 04/24/23 04/24/23 Range/Units 04:19 04:19 WBC 10.1 (4.0-10.5) x10^3/uL RBC 4.28 (4.1-5.6) x10^6/uL Hgb 13.0 (12.5-18.0) g/dL Hct 38.4 L (42-50) % MCV 89.7 (78-100) fL MCH 30.4 (26-32) pg MCHC 33.9 (32-36) g/dL RDW 13.2 (11.5-14.0) % Plt Count 281 (150-450) x10^3/uL MPV 9.9 (7.5-11.0) fL Gran % 73.4 H (36.0-66.0) % Immature Gran % (Auto) 0.4 (0.00-0.4) % Nucleat RBC Rel Count 0.0 (0.00-0.1) % Eos # (Auto) 0.21 (0-0.5) x10^3/uL Immature Gran # (Auto) 0.04 H (0.00-0.03) x10^3u/L Absolute Lymphs (auto) 1.75 (1.0-4.6) x10^3/uL Absolute Monos (auto) 0.64 (0.0-1.3) x10^3/uL Absolute Nucleated RBC 0.00 (0.00-0.01) x10^3u/L Lymphocytes % 17.4 L (24.0-44.0) % Monocytes % 6.4 (0.0-12.0) % Eosinophils % 2.1 (0.00-5.0) % Basophils % 0.3 (0.0-0.4) % Absolute Granulocytes 7.38 H (1.4-6.9) x10^3/uL Basophils # 0.03 (0-0.4) x10^3/uL Sodium 136 L (137-145) mmol/L Potassium 3.3 L (3.5-5.1) mmol/L Chloride 105 (98-107) mmol/L Carbon Dioxide 25 (22-30) mmol/L Anion Gap 9.4 (5-15) MEQ/L BUN 7 L (9-20) mg/dL Creatinine 0.75 (0.66-1.25) mg/dL Estimated GFR 125.3 ML/MIN Glucose 107 H (74-106) mg/dL Calcium 8.3 L (8.4-10.2) mg/dL Total Bilirubin 0.30 (0.2-1.3) mg/dL AST 17 (17-59) U/L ALT 18 (0-50) U/L Alkaline Phosphatase 56 (38-126) U/L Serum Total Protein 5.9 L (6.3-8.2) g/dL Albumin 3.2 L (3.5-5.0) g/dL Micro Results-Entire Visit: Microbiology 04/24/23 19:07 Body Fluid Culture Result 1 - Final Abdomen - Not Known Not Reportable Body Fluid Culture Result 2 - Final Not Reportable Body Fluid Culture Result 3 - Final Not Reportable Body Fluid Culture Result 4 - Final Not Reportable Antimicrobic Susceptibility - Final Not Reportable - Procedures and Test Procedures and Tests throughout Hospitalization: Therapy Orders & Screens 04/23/23 21:50 Smoking Cessation Education ONCE Comment: Diagnosis: Acute Appendicitis Smoking Status: Current every day smoker How long have you smoked: 10+ Have you smoked in the past 12 months: Yes Approximately how many cigarettes per day: 6-7/day Do you dip or chew tobacco: No <MARK MCDANIEL - Last Filed: 04/24/23 21:53> Discharge Exam General Appearance: no apparent distress Neurologic Exam: alert, oriented x 3, cooperative Eye Exam: PERRL Ears, Nose, Throat Exam: normal ENT inspection Neck Exam: normal inspection Respiratory Exam: normal breath sounds, lungs clear Cardiovascular Exam: regular rate/rhythm, normal heart sounds Gastrointestinal/Abdomen Exam: soft, normal bowel sounds, tenderness, other (3 px sites CDI no erythema/streaking/drainage) Male Genitalia Exam: deferred Rectal Exam: deferred Back Exam: normal inspection Extremity Exam: normal inspection <DIANA CORONA - Last Filed: 04/24/23 11:39> Final Diagnosis/Problem List - Final Discharge Diagnosis/Problem (1) Acute appendicitis Status: Acute Code(s): K35.80 - UNSPECIFIED ACUTE APPENDICITIS (2) Hypokalemia Status: Acute Code(s): E87.6 - HYPOKALEMIA (3) Hyponatremia Status: Acute Code(s): E87.1 - HYPO-OSMOLALITY AND HYPONATREMIA (4) Smoker Status: Acute Code(s): F17.200 - NICOTINE DEPENDENCE, UNSPECIFIED, UNCOMPLICATED <DIANA CORONA - Last Filed: 04/24/23 11:39> <DIANA CORONA - Last Filed: 04/24/23 11:39> <MARK MCDANIEL - Last Filed: 04/24/23 21:53> - Discharge Disposition: Home, Self-Care Condition: Stable Prescriptions: New Hydrocodone/Acetaminophen [Hydrocodone-Acetamin 5-325 mg] 1 tab PO Q6HPRN PRN 3 Days #12 tablet MDD 4 PRN Reason: Pain Instructions: Appendectomy, Laparoscopic Surgery, Hydrocodone and Acetaminophen Additional Instructions: no lifting, pulling or pushing. No driving while on the pain medication or until you feel fully capable. You are to see her in office next sunday in [place]. You can shower today, can remove outer dressing and wash lightly with soap and water, pat dry and replace dressing. eat a light diet. Follow up with: MILTON MENESES MD [ACTIVE STAFF] - 05/04/23 1:50 pm ([place] Office) JOHNNY Encounter - JOHNNY Encounter Attestation JOHNNY Encounter Attestation: "KATIANA Hare andhavediscussed pertinent aspects of their care with Diana Rodriguez agree with the history, physical exam (any modifications based on my personal exam will be noted below), assessment, and plan as outlined in original note. Please see immediately below for my summary of findings and additional assessment and plan along with any meaningful corrections/explanations to the Subjective/Objective portions of the JOHNNY note will be noted." My portion of the encounter took place via telemedicine. <MARK MCDANIEL - Last Filed: 04/24/23 21:53>
[2023-04-24 05:11] LABS: ALBUMIN 3.2 g/dL (3.5-5.0); ANION GAP 9.4 MEQ/L (5-15); BILIRUBIN,TOTAL 0.3 mg/dL (0.2-1.3); Calcium 8.3 mg/dL (8.4-10.2); Creatinine 1 0.75 mg/dL (0.66-1.25); EST GLOMERULAR FILTRATION RATE 125.3 ML/MIN; Potassium 3.3 mmol/L (3.5-5.1); Total Protein 5.9 g/dL (6.3-8.2)
[2023-04-24] MEDS: PIPERACILLIN/TAZOBACTAM 3.375 GM in Sodium Chloride 100ML MINI-BAG PLUS 100 ML IV SCH (05:34)
[2023-04-24] MEDS: NORCO 5/325 MG PO PRN (06:09)
[2023-04-24] MEDS ORDERED: Klor Con PO ONE (07:17)
[2023-04-24] MEDS ORDERED: Lactated Ringers 500 ML IV ONE (07:41)
[2023-04-24 08:00] VITALS: BP 81/45; PULSE 86; TEMP 98.4; O2SAT 93
--- NOTE | 2023-04-25 08:40 | CONS ---
CONSULT DATE: 04/23/2023 HISTORY: This is a 27-year-old gentleman who presents to [facility] with complaints of abdominal pain. The pain started in his mid-abdomen and is now radiating more towards his right side. The pain started on Sunday and then had been more vague and has continued to the point that it brought him to the emergency room. He is not actively nauseous or vomiting currently. He is not febrile. He denies any other symptoms. He has no GI bleeding either. He was eating okay however the pain was significant and that is what brought him in. PAST MEDICAL HISTORY: Negative. PAST SURGICAL HISTORY: Negative. MEDICATIONS: Medications were reviewed. He does not take medications regularly at home and it is documented in the medical record. I have also written some notes as well during our discussion on the pink consultation form in the chart as well. ALLERGIES: NKDA. Reviewed. SOCIAL HISTORY: Positive for tobacco use. Denies drug or alcohol use. FAMILY HISTORY: The patient denies any anesthesia or bleeding issues in the family. He also does not report any other significant family history. PHYSICAL EXAMINATION: GENERAL: No acute distress. CVS: Regular rate and rhythm. PULMONARY: Nonlabored. ABDOMEN: Soft, slight tender in the mid abdomen and particularly tender to the right of midline and slightly inferior and he is jumpy here with me palpating. He is not tender on the left side of his abdomen. His abdomen is not distended and he does appear to have a small 5 mm weakness at his umbilicus consistent with an umbilical hernia. ASSESSMENT AND PLAN: The patient's CT scan was reviewed clearly with him. I have discussed the entire CT scan report with him. He does have free fluid in his abdomen as well as a thickened appendix and the read said that this is consistent with appendicitis. I have discussed with the patient his options including the option for surgery versus conservative treatment/waiting and with his findings with free fluid and the appendix being thickened, my recommendation with him still having a tender abdomen would need to proceed with surgery. We have discussed that with surgery. I will attempt to do this with a small incision. I may need to make a larger incision. Risks include but they are not limited to bleeding, infection, injury of nearby organs or structures, finding unexpected findings that may change our procedure, hernia, weakness postoperatively, medical complications, anesthetic complication and other surgical related complication. I have also discussed with him that if I go in and the appendix does relatively normal I will plan to take this out and he is on board with this plan and he wants to go to surgery. After obtaining consent, he was then transferred to the operative suite for further care.
--- NOTE | 2023-04-25 09:26 | OP ---
SURGERY DATE/TIME: 04/23/20231820 PREOPERATIVE DIAGNOSIS: Acute appendicitis. POSTOPERATIVE DIAGNOSIS: Acute appendicitis with free fluid. PROCEDURE: Laparoscopic appendectomy. SURGEON: Delores Gonzales M.D. ANESTHESIA: General. ESTIMATED BLOOD LOSS: Minimal less than 5 cc. COMPLICATIONS: None. PORTS: We used a total of three ports. We upsized our 5 port at the umbilicus to a 12 port for the stapler and we placed two - 5 ports, one in the right upper quadrant and one in the left lower quadrant under direct visualization without complication. INDICATION: This is a gentleman who presented with acute appendicitis clinically as well as on CT, who has elected for laparoscopic possible open appendectomy. Full consent including a discussion of risks, benefits and alternatives have been done and completed. The patient wanted to proceed. DESCRIPTION OF PROCEDURE: He was brought to the operative suite. Anesthesia was induced. He was prepped and draped in the usual sterile fashion. We did have him void prior to the procedure and we did not use a Powers drain for procedure. After prep and drape, we then did our complete time out. I then made a curved incision following the inferior aspect of the umbilicus through skin down to the subcutaneous tissue where I then visualized the hernia that we had felt on his preoperative exam. I then placed the Veress needle directly through the hernia, had a good water drop test, insufflated his abdomen nicely through the Veress needle and then placed the 5 optical port at this site under direct visualization. We then did a quick survey of his abdomen. No injuries were identified. He did have quite a bit of free fluid. He had free fluid in the pelvis, free fluid along the right gutter and then quite a bit of free fluid also by the liver. I suctioned this free and collected this in a trap and sent this to pathology for cytology, culture and sensitivity, this was about 50 to 70 cc in total and it was clear. We then proceeded to check his abdomen. His appendix did not look significantly enlarged. It did look a little thick and on palpation the tip did feel a little thick and was slightly red compared to the remainder of the appendix this was consistent with an early appendix. This does not appear to be ruptured. I then proceeded to look along his right colon to see what was visible here and this portion of the colon looked normal from external surface that we can see. His gallbladder is distended without any obvious complication from an external view of only a portion of his gallbladder. He did have what looked like some scarring in the liver that looked to be chronic. I did not see any lesions that were specific of concern and then we did go back to his cecum to look closer at this as well as his terminal ileum which looked normal. I then ran his bowels and the appendix looked like only an early appendicitis to make sure that we were not missing an obvious Meckel's in this region and we ran his bowel back at least two feet and a little further. I did not find any Meckel's or issues from the external surface of the small bowel and then we looked at some of the central small bowel. The bowel was relatively distended with fluid but it all appeared normal from an external view except for the distention. After review was complete, we then clearly identified the appendix at its base. I then cautiously took down the adhesions and isolated the appendix. We took the blood supply after isolating this with the LigaSure and then I stapled down onto the base of the appendix getting all the way down to the cecum with a white/orange load stapler with a nice staple line. We placed the appendix in a bag, pulled this out through the umbilicus and sent this to pathology. The appendix has been fully removed. The staple line is hemostatic. It is nicely intact. There is no concerning finding here. All of the free fluid had been suctioned free. I do not see any other issue of concern and so at this point I closed with a combination of figure-[id number] and interrupted 0 Vicryl suture in an open fashion to close his umbilical hernia defect where we had placed the 12 port. We then re-inspected this site as well as the final surgical inspection, removed the right upper quadrant 5 port and then we desufflated out of the left lower quadrant 5 port and then we removed these, irrigated and closed with buried 4-0 Monocryl, Steri-Strips and sterile dressing. The patient tolerated the procedure very well. There were no immediate complications. He is going to be following up with me as an outpatient. I have discussed with him his postoperative instructions prior to the surgery but on a tentative basis and then I also discussed with the family/friend in the postoperative area these instructions and our findings postoperatively as well as instructed them to follow up with me as an outpatient after the surgery and they understood. The patient tolerated the procedure well. He was transferred to the postoperative anesthesia care unit area and then back to the floor in stable condition.
== END 2023-04-24 11:50 | disposition home or self-care (01) ==
LOC: ED 12:48 → MED SURG 17:12
PROVIDERS: ADMIT Internal Medicine; ATTEND Internal Medicine
DX: K35.80 Unspecified acute appendicitis (principal); E87.6 Hypokalemia; E87.1 Hypo-osmolality and hyponatremia; F17.200 Nicotine dependence, unspecified, uncomplicated; Z20.828 Contact with and (suspected) exposure to other viral communicable diseases
CPT/HCPCS: 36000; 36415; 74177; 80053; 83690; 85025; 85027; 87070; 96374; 99140; 99284; G0378; J0330; J2250; J2270; J2704; J3010; Q3014; A9270-GY

== ENCOUNTER 2024-02-23 18:53 | Emergency (ER) | payer BC, OTHER ==
[2024-02-23 19:10] VITALS: RESP 16; TEMP 97.9; O2SAT 98
--- NOTE | 2024-02-23 19:30 | ERPHSYRPT ---
- History of Present Illness Source: patient Exam Limitations: no limitations Patient Subjective Stated Complaint: pt here for generalized aches, chills since last night. no fever, Triage Nursing Assessment: pt alert, walked in, resp easy, skin w/d/p, abd soft, moves all ext well . no edema noted, no cough Physician History: Patient has generalized bodyaches. It is worse in his lower legs. He had some flank pain as well. He had chills around midnight this morning. He does not think he had a fever. He does not have any dysuria. He has no abdominal pain no cough or respiratory symptoms. He does not have a rash. His main symptoms are cramps in his lower legs and bilateral in the flank. He does not have any abdominal pain. Allergies/Adverse Reactions: methoxyphenamine Allergy (Verified 02/23/24 19:03) Home Medications: No Reportable Medications [No Reported Medications] 02/23/24 [History] Hx Tetanus, Diphtheria Vaccination/Date Given: No Hx Influenza Vaccination/Date Given: No Hx Pneumococcal Vaccination/Date Given: No Immunizations Up to Date: Yes Travel Risk - International Travel Have you traveled outside of the country in past 3 weeks: No - Emerging Infectious Disease Are you exhibiting symptoms associated with any current EIDs: No - Review of Systems Constitutional: Chills, Malaise Eyes: No Symptoms Ears, Nose, & Throat: No Symptoms Respiratory: No Symptoms Cardiac: No Symptoms Abdominal/Gastrointestinal: No Symptoms Genitourinary Symptoms: Flank Pain Musculoskeletal: No Symptoms All Other Systems: Reviewed and Negative - Past Medical History Pertinent Past Medical History: Yes Neurological History: No Pertinent History ENT History: No Pertinent History Cardiac History: No Pertinent History Respiratory History: Asthma Endocrine Medical History: No Pertinent History Musculoskeletal History: No Pertinent History GI Medical History: No Pertinent History History: No Pertinent History Psycho-Social History: Attention Deficit Disorder Male Reproductive Disorders: No Pertinent History Other Medical History: PT. HAS ADHD AND ADD - Past Surgical History Past Surgical History: Yes Neuro Surgical History: No Pertinent History Cardiac: No Pertinent History Respiratory: No Pertinent History Gastrointestinal: Appendectomy Genitourinary: No Pertinent History Musculoskeletal: No Pertinent History Male Surgical History: No Pertinent History Significant Family History: no pertinent family hx - Social History Smoking Status: Current every day smoker How long have you smoked: 10+ Exposure to second hand smoke: Yes Drug Use: none Patient Lives Alone: Yes - Social Determinants of Health Will the patient participate in the screening: Declined to provide - Nursing Vital Signs Nursing Vital Signs: Initial Vital Signs Blood Pressure 119/88 02/23/24 19:03 O2 Sat by Pulse Oximetry 98 02/23/24 19:03 Pain Scale Pain Intensity [Generalized] 4 Pain Intensity 2 - Physical Exam General Appearance: no apparent distress Eye Exam: PERRL/EOMI Ears, Nose, Throat Exam: normal ENT inspection, pharynx normal Neck Exam: normal inspection, non-tender Respiratory Exam: normal breath sounds, lungs clear, No chest tenderness, No respiratory distress Cardiovascular Exam: regular rate/rhythm, normal heart sounds Gastrointestinal/Abdomen Exam: soft, normal bowel sounds, tenderness Back Exam: normal inspection, normal range of motion, No CVA tenderness, No vertebral tenderness, No rash Extremity Exam: normal inspection, normal range of motion, pelvis stable Neurologic Exam: alert, oriented x 3, cooperative, net manager II-XII nml as tested, normal mood/affect Skin Exam: normal color, warm, dry, No rash Lymphatic Exam: No adenopathy SpO2: 98 O2 Delivery: Room Air - Course Nursing assessment & vital signs reviewed: Yes Ordered Tests: Active Orders 24 hr Category Date Time Status BMP Stat Lab 02/23/24 19:36 Completed CBC W DIFF Stat Lab 02/23/24 19:36 Completed MONO SCREEN Stat Lab 02/23/24 19:36 Completed UA W/RFX UR CULTURE Stat Lab 02/23/24 19:24 Completed Lab/Rad Data: Laboratory Result Diagrams 02/23/24 19:36 02/23/24 19:36 Laboratory Results 02/23/24 02/23/24 02/23/24 Range/Units 19:36 19:36 19:36 WBC (4.23-9.07) x10^3/uL RBC (4.63-6.08) x10^6/uL Hgb (13.7-17.5) g/dL Hct (40.1-51.0) % MCV (79.0-92.2) fL MCH (25.7-32.2) pg MCHC (32.3-36.5) g/dL RDW (11.6-14.4) % Plt Count (163-337) x10^3/uL MPV (9.4-12.4) fL Gran % (34.0-67.9) % Immature Gran % (Auto) (0.001-0.429) % Nucleat RBC Rel Count (0.00-0.2) % Eos # (Auto) (0.04-0.54) x10^3/uL Immature Gran # (Auto) (0.001-0.031) x10^3u/L Absolute Lymphs (auto) (1.32-3.57) x10^3/uL Absolute Monos (auto) (0.30-0.82) x10^3/uL Absolute Nucleated RBC (0.00-0.012) x10^3u/L Lymphocytes % (21.8-53.1) % Monocytes % (5.3-12.2) % Eosinophils % (0.8-7.0) % Basophils % (0.2-1.2) % Absolute Granulocytes (1.78-5.38) x10^3/uL Basophils # (0.01-0.08) x10^3/uL Sodium 140 (135-145) mmol/L Potassium 3.9 (3.5-5.1) mmol/L Chloride 107 (98-107) mmol/L Carbon Dioxide 25 (22-30) mmol/L Anion Gap 12.3 (5-15) MEQ/L BUN 13 (9-20) mg/dL Creatinine 1.10 (0.66-1.25) mg/dL Estimated GFR 92.6 ML/MIN Glucose 95 (74-106) mg/dL Calcium 8.5 (8.4-10.2) mg/dL Urine Color (Yellow) Urine Appearance (Clear) Urine pH (4.6-8.0) Ur Specific Caret (1.005-1.030) Urine Protein (Negative) Urine Glucose (UA) (Negative) mg/dL Urine Ketones (Negative) Urine Blood (Negative) Urine Nitrite (Negative) Urine Bilirubin (Negative) Urine Urobilinogen (0.2) mg/dL Ur Leukocyte Esterase (Negative) U Hyaline Cast (Auto) (0-2) /LPF Urine Microscopic RBC (0-5) /HPF Urine Microscopic WBC (0-5) /HPF Ur Epithelial Cells (None Seen) /HPF Urine Bacteria (None Seen) /HPF Urine Culture Reflexed (NO) Monoscreen NEGATIVE (NEGATIVE) Influenza Type A Ag NEGATIVE (NEGATIVE) Influenza Type B Ag NEGATIVE (NEGATIVE) RSV (PCR) NEGATIVE (NEGATIVE) SARS-CoV-2 (PCR) NEGATIVE (NEGATIVE) 02/23/24 02/23/24 Range/Units 19:36 19:24 WBC 8.7 (4.23-9.07) x10^3/uL RBC 4.65 (4.63-6.08) x10^6/uL Hgb 14.1 (13.7-17.5) g/dL Hct 41.6 (40.1-51.0) % MCV 89.5 (79.0-92.2) fL MCH 30.3 (25.7-32.2) pg MCHC 33.9 (32.3-36.5) g/dL RDW 12.9 (11.6-14.4) % Plt Count 270 (163-337) x10^3/uL MPV 9.6 (9.4-12.4) fL Gran % 57.7 (34.0-67.9) % Immature Gran % (Auto) 0.2 (0.001-0.429) % Nucleat RBC Rel Count 0.0 (0.00-0.2) % Eos # (Auto) 0.65 H (0.04-0.54) x10^3/uL Immature Gran # (Auto) 0.02 (0.001-0.031) x10^3u/L Absolute Lymphs (auto) 2.26 (1.32-3.57) x10^3/uL Absolute Monos (auto) 0.70 (0.30-0.82) x10^3/uL Absolute Nucleated RBC 0.00 (0.00-0.012) x10^3u/L Lymphocytes % 26.0 (21.8-53.1) % Monocytes % 8.1 (5.3-12.2) % Eosinophils % 7.5 H (0.8-7.0) % Basophils % 0.5 (0.2-1.2) % Absolute Granulocytes 5.02 (1.78-5.38) x10^3/uL Basophils # 0.04 (0.01-0.08) x10^3/uL Sodium (135-145) mmol/L Potassium (3.5-5.1) mmol/L Chloride (98-107) mmol/L Carbon Dioxide (22-30) mmol/L Anion Gap (5-15) MEQ/L BUN (9-20) mg/dL Creatinine (0.66-1.25) mg/dL Estimated GFR ML/MIN Glucose (74-106) mg/dL Calcium (8.4-10.2) mg/dL Urine Color Yellow (Yellow) Urine Appearance Clear (Clear) Urine pH 7.5 (4.6-8.0) Ur Specific Caret <=1.005 (1.005-1.030) Urine Protein Negative (Negative) Urine Glucose (UA) Negative (Negative) mg/dL Urine Ketones Negative (Negative) Urine Blood Negative (Negative) Urine Nitrite Negative (Negative) Urine Bilirubin Negative (Negative) Urine Urobilinogen 0.2 (0.2) mg/dL Ur Leukocyte Esterase Negative (Negative) U Hyaline Cast (Auto) NONE SEEN (0-2) /LPF Urine Microscopic RBC 0-2 (0-5) /HPF Urine Microscopic WBC 0-2 (0-5) /HPF Ur Epithelial Cells None Seen (None Seen) /HPF Urine Bacteria None Seen (None Seen) /HPF Urine Culture Reflexed NO (NO) Monoscreen (NEGATIVE) Influenza Type A Ag (NEGATIVE) Influenza Type B Ag (NEGATIVE) RSV (PCR) (NEGATIVE) SARS-CoV-2 (PCR) (NEGATIVE) - Progress Progress: unchanged Progress Note: On the differential was COVID flu mono, viral syndrome, pyelonephritis.All of his lab work was negative for all those screens. His white count was elevated. I think he just has a viral syndrome going on. I am going to encourage him to drink lots of fluids and take Tylenol and Advil for any symptoms. He is to return if symptoms worsen. 02/23/24 20:28 Medical Desision Making - Independent Historian Additional History obtained from: Mother - Risk of complications Minimal Risk: Minimal risk of morbidity - Departure Departure Disposition: Home Clinical Impression: Viral syndrome Condition: Stable Critical Care Time: No Referrals: DOCTOR,NO FAMILY [Primary Care Provider] - Follow up/PCP as directed Additional Instructions: Drink lots of clear liquids. Tylenol and Advil for symptoms you might have. Follow-up with primary care doctor in 2 to 3 days if you are not feeling better or return if worsens.
[2024-02-23 19:39] LABS: Absolute Neutrophil Ct (ANC) 5.02 x10^3/uL (1.78-5.38); BASOPHIL % 0.5 % (0.2-1.2); Basophil (Absolute #) 0.04 x10^3/uL (0.01-0.08); Eosinophil % 7.5 % (0.8-7.0); Eosinophil (Absolute #) 0.65 x10^3/uL (0.04-0.54); Hematocrit 41.6 % (40.1-51.0); Hemoglobin 14.1 g/dL (13.7-17.5); IMMATURE GRAN # 0.02 x10^3u/L (0.001-0.031); IMMATURE GRAN % 0.2 % (0.001-0.429); Lymphocyte (Absolute #) 2.26 x10^3/uL (1.32-3.57); Mean Cell Volume 89.5 fL (79.0-92.2); Mean Corpuscular Hemoglobin 30.3 pg (25.7-32.2); Mean Corpuscular Hgb Concent. 33.9 g/dL (32.3-36.5); Mean Platelet Volume 9.6 fL (9.4-12.4); Monocytes % 8.1 % (5.3-12.2); Neutrophil % 57.7 % (34.0-67.9); Platelet Count 270 x10^3/uL (163-337); Red Blood Count 4.65 x10^6/uL (4.63-6.08); Red Cell Distribution Width 12.9 % (11.6-14.4); White Blood Count 8.7 x10^3/uL (4.23-9.07)
[2024-02-23 19:48] LABS: Appearance Clear (Clear); Bacteria None Seen /HPF (None Seen); Bilirubin Negative (Negative); Blood Negative (Negative); Epithelial Cells None Seen /HPF (None Seen); Glucose, Urine Negative (Negative); Hyaline Casts NONE SEEN /LPF (0-2); Ketones Negative (Negative); Leukocyte Esterase Negative (Negative); Nitrite Negative (Negative); Ph 7.5 (4.6-8.0); Protein,Urine Dip Negative (Negative); RBC 0-2 /HPF (0-5); Specific Gravity <=1.005 (1.005-1.030); Urobilinogen 0.2 mg/dL (0.2); WBC 0-2 /HPF (0-5)
[2024-02-23 19:52] LABS: ANION GAP 12.3 MEQ/L (5-15); Calcium 8.5 mg/dL (8.4-10.2); Creatinine 1 1.1 mg/dL (0.66-1.25); EST GLOMERULAR FILTRATION RATE 92.6 ML/MIN; Potassium 3.9 mmol/L (3.5-5.1)
[2024-02-23 20:05] VITALS: BP 129/80; PULSE 76
[2024-02-23 20:15] LABS: INFLUENZA A NEGATIVE (NEGATIVE); INFLUENZA B NEGATIVE (NEGATIVE); RESPIRATORY SYNCTIAL VIRUS NEGATIVE (NEGATIVE); SARS-CoV-2 Xpert Express NEGATIVE (NEGATIVE)
== END 2024-02-23 20:37 | disposition home or self-care (01) ==
LOC: ED 18:53
DX: B34.9 Viral infection, unspecified (principal); M79.10 Myalgia, unspecified site; R10.9 Unspecified abdominal pain; Z72.0 Tobacco use
CPT/HCPCS: 0241U; 36415; 80048; 81001; 85025; 86308; 99283; 99282